=== PATIENT | male | born 1985 | race Caucasian/White ===

== ENCOUNTER 2021-10-27 13:29 | Outpatient (REF) | payer BC, SELFPAY ==
--- NOTE | ~2021-10-27 | US_ITS ---
EXAMINATION: US SCROTUM CLINICAL INFORMATION: Right scrotal/testicular pain. COMPARISON: None TECHNIQUE: A sonogram of the scrotum was performed assessing mata-scale appearance and color Doppler flow. Spectral Doppler analysis of the arterial and venous flow were performed in the testes bilaterally. FINDINGS: RIGHT: Right testicle measures 5.0 x 2.3 x 3.3 cm, volume 19.8 mL. No focal testicular parenchymal lesions are visualized. Spectral Doppler analysis of the arterial and venous flow is normal in the right testis. Right epididymal head is normal in size. No right hydrocele or varicocele is seen. Right epididymal Doppler flow is normal. LEFT: Left testicle measures 4.9 x 2.2 x 3.2 cm, volume 18.0 mL. No focal testicular parenchymal lesions are visualized. Spectral Doppler analysis of the arterial and venous flow is normal in the left testis. Left epididymal head is normal in size. No left hydrocele or varicocele is seen. Left epididymal Doppler flow is normal. Incidental 0.3 cm epididymal head cyst. US/US scrotum doppler IMPRESSION: Unremarkable exam. No torsion or testicular mass.
--- NOTE | ~2021-10-27 | US_ITS ---
EXAMINATION: US SCROTUM CLINICAL INFORMATION: Right scrotal/testicular pain. COMPARISON: None TECHNIQUE: A sonogram of the scrotum was performed assessing mata-scale appearance and color Doppler flow. Spectral Doppler analysis of the arterial and venous flow were performed in the testes bilaterally. FINDINGS: RIGHT: Right testicle measures 5.0 x 2.3 x 3.3 cm, volume 19.8 mL. No focal testicular parenchymal lesions are visualized. Spectral Doppler analysis of the arterial and venous flow is normal in the right testis. Right epididymal head is normal in size. No right hydrocele or varicocele is seen. Right epididymal Doppler flow is normal. LEFT: Left testicle measures 4.9 x 2.2 x 3.2 cm, volume 18.0 mL. No focal testicular parenchymal lesions are visualized. Spectral Doppler analysis of the arterial and venous flow is normal in the left testis. Left epididymal head is normal in size. No left hydrocele or varicocele is seen. Left epididymal Doppler flow is normal. Incidental 0.3 cm epididymal head cyst. US/US scrotum IMPRESSION: Unremarkable exam. No torsion or testicular mass.
[2021-10-28 03:16] LABS: CT PCR NOT DETECTED (Not Detect.); NG PCR NOT DETECTED (Not Detect.)
== END 2021-10-27 13:30 | disposition home or self-care (01) ==
LOC: HO.HMGCX 13:29
PROVIDERS: Visit Provider Physician Assistant
DX: N50.811 Right testicular pain (principal)
CPT/HCPCS: 76870; 87491; 87591; 93975

== ENCOUNTER 2021-11-16 14:27 | Outpatient (REF) | payer BC, SELFPAY ==
[2021-11-16 15:28] LABS: Influenza A PCR NEGATIVE (Negative); Influenza B PCR NEGATIVE (Negative); Resp Syncy Virus RNA Qual PCR NEGATIVE (Negative); SARS COV2 PCR INHOUSE NEGATIVE (Negative)
== END 2021-11-16 14:28 | disposition home or self-care (01) ==
LOC: HO.LNP 14:27
PROVIDERS: Visit Provider Physician Assistant
DX: B34.9 Viral infection, unspecified (principal); Z20.822 Contact with and (suspected) exposure to COVID-19
CPT/HCPCS: 0241U